=== PATIENT | male | born 1980 | race Caucasian/White ===

== ENCOUNTER 2018-12-20 15:01 | Emergency (ER) | payer SELFPAY ==
[~2018-12-20] VITALS: Ht 185.4 cm; Wt 88.6 kg
[2018-12-20 15:07] VITALS: Ht 185.4 cm; Wt 88.6 kg
[2018-12-20] MEDS ORDERED: NAPROSYN500 MG PO (15:54)
[2018-12-20] MEDS ORDERED: CYCLOBENZAPRINE10 MG PO (15:54)
[2018-12-20] MEDS ORDERED: PREDNISONE10 MG PO (15:54)
[2018-12-20 16:04] VITALS: BP 138/87
== END 2018-12-20 16:06 | disposition home or self-care (01) ==
LOC: D.ER 15:01
DX: S29.012A Strain of muscle and tendon of back wall of thorax, initial encounter (principal); X50.0XXA Overexertion from strenuous movement or load, initial encounter; S16.1XXA Strain of muscle, fascia and tendon at neck level, initial encounter; M62.838 Other muscle spasm; F17.210 Nicotine dependence, cigarettes, uncomplicated